=== PATIENT | male | born 1960 | race Two or more races ===

== ENCOUNTER 2016-04-30 11:52 | Emergency (ER) | payer OTHER ==
[~2016-04-30] VITALS: Ht 172.7 cm; Wt 126.6 kg
[2016-04-30 12:15] VITALS: BP 160/83
== END 2016-04-30 13:22 | disposition home or self-care (01) ==
LOC: ER 11:59
DX: I12.0 Hypertensive chronic kidney disease with stage 5 chronic kidney disease or end stage renal disease (principal); Z99.2 Dependence on renal dialysis; N18.6 End stage renal disease; R76.11 Nonspecific reaction to tuberculin skin test without active tuberculosis; Z88.6 Allergy status to analgesic agent
CPT/HCPCS: 71020